=== PATIENT | female | born 1940 | race Caucasian/White ===

== ENCOUNTER 2023-09-18 09:15 | Outpatient (CLI) | payer MEDICARE, SELFPAY | END 2023-09-18 09:16 | disposition home or self-care (01) | LOC: AMB 09-21 07:19 | PROVIDERS: Visit Provider Emergency Medicine Emergency Medical Services | DX: R42 Dizziness and giddiness (principal) | CPT/HCPCS: A0425; A0429 ==

== ENCOUNTER 2024-10-09 12:35 | Outpatient (CLI) | payer MEDICARE, SELFPAY | END 2024-10-09 12:36 | disposition home or self-care (01) | PROVIDERS: Visit Provider Family Medicine | DX: R51.9 Headache, unspecified (principal) | CPT/HCPCS: A0425; A0427 ==